=== PATIENT | female | born 1965 | race African-American/Black ===

== ENCOUNTER 2018-03-03 14:54 | Outpatient (CLI) | payer OTHER | END 2018-03-03 14:55 | disposition home or self-care (01) | LOC: BICRAD 14:54 | PROVIDERS: ATTEND Psychiatry & Neurology Neurology | DX: G44.1 Vascular headache, not elsewhere classified (principal) | CPT/HCPCS: 70450 ==

== ENCOUNTER 2018-03-16 00:12 | Emergency (ER) | payer OTHER ==
[2018-03-16 01:02] LABS: #Basophils 0.1 thou/uL (0.0-0.2); #Lymphocytes 1.6 thou/uL (1.20-3.40); #Monocytes 0.5 thou/uL (0.11-0.59); %Lymphocytes 21.9 % (21.0-51.0); %Monocytes 6.8 % (0.0-10.0); %Neutrophils 69.3 % (42.0-75.0); Hemoglobin 14.1 g/dL (12.0-16.0); Mean Corpuscular HGB CONC 33.8 g/dL (32.0-36.0); Mean Corpuscular Hemoglobin 32.3 pg (27.0-31.0); Mean Corpuscular Volume 95.4 fL (78.0-98.0); Mean Platelet Volume 6.3 fL (7.4-10.4); Platelet Count 233 thou/uL (130-400); RBC Distribution Width 11.6 % (11.5-14.5); Red Blood Cell (RBC) Count 4.38 mill/uL (4.20-5.40); White Blood Cell (WBC) Count 7.1 thou/uL (4.8-10.8)
[2018-03-16 01:12] LABS: ALT (SGPT) 35 U/L (8-55); AST (SGOT) 28 U/L (5-34); Albumin 4.1 g/dL (3.5-5.0); Alkaline Phosphatase 77 U/L (40-150); Anion Gap 12 mmol/L (10-20); BUN (Urea Nitrogen) 13 mg/dL (9.8-20.1); Bilirubin, Total 0.3 mg/dL (0.2-1.2); Calc. Creatinine Clearance 0 mL/min (70-130); Calcium 9.4 mg/dL (7.8-10.44); Carbon Dioxide 24 mmol/L (22-29); Chloride 109 mmol/L (98-107); Estimated GFR-MDRD Greater than 90; Globulin 2.8 g/dL (2.4-3.5); Glucose 121 mg/dL (70-105); Potassium 3.6 mmol/L (3.5-5.1); Protein, Total 6.9 g/dL (6.0-8.3); Sodium 141 mmol/L (136-145)
[2018-03-16 01:22] LABS: Troponin I 0.012 ng/mL (< 0.028)
--- NOTE | 2018-03-16 10:15 | RAD ---
PA AND LATERAL CHEST XRAY: DATE: 03/16/18. HISTORY: Syncope episode. COMPARISON: None available. FINDINGS: The cardiac silhouette is at the upper limits of normal in size. Pulmonary vasculature is within nor mal limits. Lungs are clear. Osseous structures are intact. IMPRESSION: No acute cardiopulmonary process. POS: [facility]
== END 2018-03-16 01:34 | disposition home or self-care (01) ==
LOC: SCSER 00:12
DX: R55 Syncope and collapse (principal); I10 Essential (primary) hypertension; E03.9 Hypothyroidism, unspecified; G43.909 Migraine, unspecified, not intractable, without status migrainosus; Z86.73 Personal history of transient ischemic attack (TIA), and cerebral infarction without residual deficits
CPT/HCPCS: 71046; 80053; 84484; 85025; 93005; 96360